=== PATIENT | female | born 1950 | race Caucasian/White ===

== ENCOUNTER → 2017-07-05 | Outpatient (CLI) | payer OTHER ==
[2017-07-05 12:57] LABS: ALT/SGPT 21 U/L (12-78); BLOOD UREA NITROGEN 10 mg/dl (7-18); BUN/CREATININE RATIO 13.2 (10-20); CALCIUM 9.1 mg/dl (8.5-10.1); CARBON DIOXIDE 29 mmol/L (21-32); CHLORIDE 106 mmol/L (98-107); CHOLESTEROL 274 mg/dl (0-200); CREATININE 0.78 mg/dl (0.60-1.20); GLUCOSE,FASTING 96 mg/dl (70-99); POTASSIUM 4.1 mmol/L (3.5-5.1); SODIUM 139 mmol/L (136-145); TRIGLYCERIDES 63 mg/dl (0-150); VERY LOW DENSITY LIPOPROT CALC 13 mg/dl
[2017-07-05 13:07] LABS: ALB/GLOB RATIO 0.9 (0.9-2); ALKALINE PHOSPHATASE 109 U/L (45-117); AST/SGOT 23 U/L (15-37); CHOLESTEROL/HDL RATIO 3.1; HDL CHOLESTEROL 88 mg/dl; LDL CHOLESTEROL CALCULATED 173 mg/dl
== END | disposition home or self-care (01) ==
LOC: C.LABPBG 09:19
PROVIDERS: ATTEND Physician Assistant
DX: Z00.00 Encounter for general adult medical examination without abnormal findings (principal); Z13.21 Encounter for screening for nutritional disorder; R53.83 Other fatigue

== ENCOUNTER → 2017-12-31 | Outpatient (CLI) | payer OTHER, MEDICARE ==
[2017-12-31 17:25] LABS: ALBUMIN 4.2 gm/dl (3.4-5.0); ALT/SGPT 22 U/L (12-78); AST/SGOT 24 U/L (15-37); BLOOD UREA NITROGEN 11 mg/dl (7-18); CARBON DIOXIDE 30 mmol/L (21-32); CHOLESTEROL 217 mg/dl (0-200); CREATININE 0.86 mg/dl (0.60-1.20); GLUCOSE 95 mg/dl (70-99); POTASSIUM 3.8 mmol/L (3.5-5.1); SODIUM 139 mmol/L (136-145)
[2017-12-31 17:28] LABS: ALKALINE PHOSPHATASE 104 U/L (45-117); LDL CHOLESTEROL CALCULATED 118 mg/dl; TOTAL PROTEIN 8.7 gm/dl (6.4-8.2)
[2017-12-31 18:10] LABS: HEMATOCRIT 39.5 % (37-47); MEAN CELL VOLUME 78.8 fL (80-100); MEAN CORPUSCULAR HGB CONC 30.4 g/dl (32-36); MEAN PLATELET VOLUME 10.7 fL (7.4-10.4); PLATELET COUNT 143 K/uL (130-400); RED CELL DISTRIBUTION WIDTH CV 16.3 % (11.5-14.5); RED CELL DISTRIBUTION WIDTH SD 46.3 fL (36.4-46.3); WHITE BLOOD COUNT 4.96 K/uL (4.8-10.8)
== END | disposition home or self-care (01) ==
LOC: C.LABPBG 11:46
PROVIDERS: ATTEND Family Medicine
DX: E78.5 Hyperlipidemia, unspecified (principal); E55.9 Vitamin D deficiency, unspecified; G47.19 Other hypersomnia; W57.XXXA Bitten or stung by nonvenomous insect and other nonvenomous arthropods, initial encounter

== ENCOUNTER → 2018-02-04 | Outpatient (CLI) | payer OTHER, MEDICARE ==
--- NOTE | 2018-02-05 06:31 | PAP/PSG TECHNICIAN REPORT ---
[facility] Jet Dyeing Machine Tender Polysomnogram Report Study name: None Report date: 02/05/2018 Study date: 02/04/2018 Referring Physician: Regina Chavez DO Name: JAVAN CHIRINOS Interpreting Physician: Harrison Larios D.O. Date of : 1950 Jet Dyeing Machine Tender: CLARISSE Lazo. Sex: Female Age: 67 StudyType: PSG PAP Weight: 141 lbs Height: 67 years, Height 5' 5.75" BMI: 22.93 Medications: Chlorhexidine Gluconate 0.12%, Atorvastatin Calcium 20 mg, Fish Oil 1000 mg, Prevnar 13, Vitamin D3, Fluorouracil 0.5% external cream Patient History 67 yr. old female here for a new titration sleep study. According to the patient had a HST, the results are unavailable. Patient complains of snoring and sleep maintenance insomnia. Parameters Monitored NPSG: E1-M2, E2-M1, Fp1-M2, Fp2-M1, F3-M2, F4-M2, F4-M1, C3-M2, C4-M2, C4-M1, O1-M2, O2-M2, O2-M1, T3-M2, T4-M1, P3-M2, P4-M1, CHIN1, CHIN2, HR, EKG, Legs, PFLOW, SNOR, FLOW, CFLOW, Tidal Volume, THOR, ABDO, SpO2, PLTH, CPRESS, ETCO2 Wave, ETCO2, pH Sleep Architecture Sleep Stages Time at Lights Off 10:06:20 PM STAGES Time (min.) TST (%) Time at Lights On 5:28:20 AM Wake 64.0 -- Total Recording Time (TRT) 442.50 min. N1 25.0 7 Total Sleep Period (TSP) 420.5 min. N2 199.0 53 Total Sleep Time (TST) 378.0min. N3 100.5 27 Awake Time 64.0 min. REM 53.5 14 Wake after Sleep Onset 42.5 min. Sleep Efficiency (SE) 86 % Sleep Onset Latency (NEHEMIAS) 21.5 min. Number of Stage 1 Shifts None Awakenings 19 Stage Changes 75 Number of REM periods 3 REM 53.5 14 REM Latency 184.0 min. NREM 324.5 86 Body Position Analysis Supine Right Left Side Prone Vertical Total Sleep Time (min.) 441.6 0.0 0.0 0.00 0.0 0.4 Total Sleep Time (%) 100% 0% 0% 0 0% N/A% Total Sleep Time REM (min.) 53.5 0.0 0.0 None 0.0 0.0 Total Sleep Time NREM (min.) 324.5 0.0 0.0 None 0.0 0.0 Intermittent Wake (min.) 63.6 0.0 0.0 None 0.0 0.4 Total Sleep Period (%) 100% None None None None None Arousals Myoclonus (PLM) * Events Count Index Events Count Index Spontaneous 1 0 Events Awake (PLMW) 87 81.6 Respiratory 2 0.3 Events Asleep w/ Arousal (PLMA) 62 9.8 PLM 61 10 Events Asleep w/o Arousal (PLMS) 384 61.0 Snoring 2 0 Total Asleep 446 70.8 Total 66 10 Total 533 72 Respiratory Analysis * CA OA MA CH H RERA Total Count 2 1 0 0 1 0 4 Index 0.3 0.2 0.0 0 0.2 0 0.6 Mean Duration 16.9 16.2 0.0 0.00 34.5 0.0 21.1 Longest Duration 22.6 16.2 0.0 0.00 0.0 0.0 34.5 Respiratory Event Summary Total Supine ~Supine Right Left Prone REM NREM Apneas Count 3 3 N/A N/A N/A N/A 1 2 Index 0.5 0 N/A N/A N/A N/A 1 0 Hypopneas (4% Desat) Count 1 1 N/A N/A N/A N/A 1 0 Index 0.2 0.2 N/A N/A N/A N/A 1.1 0.0 Apneas & All Hypopneas Count 4 4 N/A N/A N/A N/A 2 2 Index 0.6 1 N/A N/A N/A N/A 2.2 0.4 Respiratory Events (Taper Machine+All Hyp+RERA) Count 4 4 N/A N/A N/A N/A 2 2 Index 0.6 1 N/A N/A N/A N/A 2.2 0.4 Respiratory Related Arousal Count 2 4 N/A N/A N/A N/A 1 1 Index 0.3 0 N/A N/A N/A N/A 1 0 Snoring Analysis Supine Right Left Prone REM NREM Total Snore duration 3.4 min Snores count 152 N/A N/A N/A 36 116 152 Snore mean duration 1.3 Sec Snores index 24 N/A N/A N/A 40.4 21.4 24.1 TST with snoring (%) 0.9% Desaturation Event Summary: Minimum %SpO2 Event Count Mean/Min/Max Duration(sec.) Desaturation Index % Time In Bed > 90 4 33.0 / 18.8 / 56.5 0.5 100.0 86 - 90 0 N/A 0.0 0.0 81 - 85 0 N/A 0.0 0.0 76 - 80 0 N/A 0.0 0.0 71 - 75 0 N/A 0.0 0.0 66 - 70 0 N/A 0.0 0.0 61 - 65 0 N/A 0.0 0.0 56 - 60 0 N/A 0.0 0.0 51 - 55 0 N/A 0.0 0.0 < 50 0 N/A 0.0 0.0 Total REM NREM Awake <50% 0.0 min. 0.0 min. 0.0 min. 0.0 min. 51 - 60% 0.0 min. 0.0 min. 0.0 min. 0.0 min. 61 - 70% 0.0 min. 0.0 min. 0.0 min. 0.0 min. 71 - 80% 0.0 min. 0.0 min. 0.0 min. 0.0 min. 81 - 90% 0.1 min. 0.0 min. 0.0 min. 0.1 min. 91 - 100% 441.6 min. 53.5 min. 324.3 min. 63.8 min. Average 95 96 95 96 Minimum SpO2 90 91 91 90 Desaturation Event Index 0.5 1.1 0.0 2.8 # Desat. Events below 89% N/A N/A N/A N/A Time(%) with Saturation below 89% 0.0 0.0 0.0 0.0 Time(min.) with Saturation below 89% 0.0 0.0 0.0 0.0 Time (mins) REM (mins) NREM (mins) % of TST SpO2 Below 90% N/A N/A NN/A 0.0 SpO2 Below 88% 0 0 0 0 Heart Rate Analysis Min (bpm) Max (bpm) Average (bpm) Awake 59 127 71 NREM 58 78 65 REM 61 74 65 Overall 58 78 65 Supplemental O2 Values Minimum O2 level: None Value Start Time End Time Jet Dyeing Machine Tender Comments Mrs. Goldsmith slept in the supine position. No cardiac arrhythmia. Frequent PLMs noted. No bruxism noted. CPAP was initiated at +4 CMH2O and up-titrated to a level of +5 CMH2O Cflex 2 for snoring. A small ResMed mirage FX nasal mask was used during titration. Mrs. Goldsmith did not wake to use the restroom during the night. Mrs. Goldsmith stated, I slept longer, my left leg was really bothering me. The final report will be interpreted and signed by a sleep physician. The completed physician report will then be placed in the patient medical record. Therapy Event: Therapy (cm H20) 4 5 Total Time at Pressure (min.) 277.1 164.9 TST at Pressure (min.) 232.1 145.9 # Periods 1 1 Sleep Onset (min.) 21.5 0.0 REM Onset (min.) 205.5 73.4 Sleep Efficiency % 83 88 Wakefulness (%) 16.2 11.5 Wakefulness (min.) 45.0 19.0 NREM 1 (%) 4.3 7.9 NREM 1 (min.) 12.0 13.0 NREM 2 (%) 39.4 54.5 NREM 2 (min.) 109.1 89.9 NREM 3 (%) 28.2 13.6 NREM 3 (min.) 78.0 22.5 REM (%) 11.9 12.4 REM (min.) 33.0 20.5 # Arousals 50 16 Arousal Index 12.9 6.6 # Snore 61 91 Snore Index 15.8 37.4 AHI 0.5 0.8 AHI Supine 0.5 0.8 AHI Non-Supine N/A N/A NREM AHI 0.3 0.5 REM AHI 1.8 2.9 RDI 0.5 0.8 # Obstructive 1 0 # Central Ap 0 2 # Mixed 0 0 # Hypopneas 1 0 RERAS 0 0 Total Respiratory Events 2 2 Time Below SpO2 89.00% (min.) 0.0 0.0 Mean NREM SpO2 (%) 95 95 Mean REM SpO2 (%) 96 96 Mean Sleep SpO2 (%) 95 96 Min NREM SpO2 (%) 93 91 Min REM SpO2 (%) 91 95 Position Supine (min.) 232.1 145.9 Position Non-supine (min.) 0.0 0.0 LM Index Sleep 106.0 14.8 LM Index NREM 115.4 14.8 LM Index REM 49.1 14.6 Mean Heart Rate (bpm) 66 62 Min Heart Rate (bpm) 60 58
--- NOTE | 2018-02-10 13:41 | POLYSOMNOGRAPH REPORT ---
CLINICAL DATA: A 67-year-old female with a BMI of 22.[address] Suárez for a CPAP titration. She had a home sleep apnea test which showed severe sleep apnea with an QUYNH of 62. SLEEP ARCHITECTURE: Total sleep period was 420.5 minutes. Total sleep time was 378 minutes divided between 324.5 minutes of non-REM sleep and 53.5 minutes of REM sleep. Sleep onset latency was 21.5 minutes. REM latency was 184 minutes. Sleep efficiency was 86%. Wake after sleep onset was 42.5 minutes. Sleep consisted of stage N1 7%, stage N2 53%, stage N3 27%, and REM 14%. AROUSAL DATA: 66 arousals were recorded for an index of 10 per hour. 61 were due to PLMs events. PLM DATA: Significant PLMD was seen. There were 446 limb movements during sleep noted for an index of 70.8 per hour with arousal index of 9.8 per hour. RESPIRATORY DATA: The AHI was 0.6. There were 2 central and 1 obstructive apneic episode. The longest apneic episode was 22.6 seconds. There was 1 hypopneic episode, 34.5 seconds in duration. OXIMETRY DATA: No hypoxemia was seen. Oxygen eliazar was 91%. Mean saturation was 95%. EKG: Heart rates ranged from 58-78 beats per minute. No arrhythmias noted. PARACHUTE OFFICER'S COMMENTS AND TREATMENT SUMMARY: The patient slept supine. She used a small ResMed Mirage FX nasal mask. She was titrated up to 5 cm water pressure. At her final pressure setting, she slept for 145.9 minutes with an AHI of 0.8. IMPRESSION: Severe sleep apnea/hypopnea corrected with CPAP 5 cm water pressure, C-Flex setting #2, small ResMed Mirage FX nasal mask. RECOMMENDATIONS: The patient should be started on the above-noted treatment regimen and seen back in followup within 90 days to document efficacy and compliance. HUAND
== END | disposition home or self-care (01) ==
LOC: C.NEUR 21:00
PROVIDERS: ATTEND Family Medicine
DX: G47.30 Sleep apnea, unspecified (principal)

== ENCOUNTER → 2018-04-15 | Outpatient (CLI) | payer OTHER, MEDICARE ==
[~2018-04-15] VITALS: Ht 165.1 cm; Wt 64.9 kg
[2018-04-15 14:49] VITALS: BP 164/83; PULSE 76; Ht 165.1 cm; Wt 64.9 kg
== END | disposition home or self-care (01) ==
LOC: C.NEUR 14:08
PROVIDERS: ATTEND Internal Medicine Pulmonary Disease
DX: G47.30 Sleep apnea, unspecified (principal)